=== PATIENT | male | born 1995 | race Caucasian/White ===

== ENCOUNTER 2025-08-20 16:05 | Emergency (ER) | payer OTHER ==
[~2025-08-20] VITALS: Ht 182.9 cm; Wt 79.0 kg
[2025-08-20 18:06] VITALS: O2SAT 99
[2025-08-20] MEDS: MIDAZOLAM HCL 2 MG/2 ML VIAL IM NR (18:06)
[2025-08-20] MEDS ORDERED: MIDAZOLAM HCL 2 MG/2 ML VIAL IM STA (18:06)
[2025-08-20] MEDS ORDERED: MIDAZOLAM HCL 5 MG/ML VIAL IM STA (18:26)
[2025-08-20] MEDS ORDERED: MIDAZOLAM HCL 50 MG/10 ML VIAL IV STA (18:30)
[2025-08-20 19:10] VITALS: BP 165/75; PULSE 131; RESP 40; TEMP 36.8; O2SAT 99
== END 2025-08-20 19:24 ==
LOC: ER 16:05
DX: R45.1 Restlessness and agitation (principal); Z02.89 Encounter for other administrative examinations; F31.9 Bipolar disorder, unspecified; Z78.1 Physical restraint status
CPT/HCPCS: 96372; 99291; J2250; Z7610